=== PATIENT | female | born 1965 | race Caucasian/White ===

== ENCOUNTER 2017-01-01 05:33 | Day surgery (SDC) | payer OTHER ==
[2016-12-30 14:07] LABS: HEMATOCRIT 40.6 % (34.6-47.8); HEMOGLOBIN 13.4 g/dL (11.7-16.4); WHITE BLOOD COUNT 9.1 x10^3/uL (3.4-10)
[2016-12-30 14:18] LABS: BLOOD UREA NITROGEN 13 mg/dL (7-18)
[~2017-01-01] VITALS: Ht 167.6 cm; Wt 63.9 kg
[~2017-01-01 05:33] MED LIST: AZEL50GE5 TP; CHOL2000 PO; PARO10TA3 PO; POTA5TAB2 PO; POTASSIUM CITRATE PO
[2017-01-01] MEDS ORDERED: LACTATED RINGERS 1,000 ML IV SCH (06:07)
[2017-01-01 06:09] VITALS: BP 124/80
[2017-01-01] MEDS ORDERED: SILVER NITRATE STICK TP ONE (06:15)
[2017-01-01] MEDS ORDERED: BUPIVACAINE/PF 0.25% ONE (06:50)
[2017-01-01] MEDS ORDERED: EPINEPHRINE 1 MG/ML, 1ML ONE (06:50)
[2017-01-01] MEDS ORDERED: FENTANYL PF 100 MCG/2ML ONE (07:12)
[2017-01-01] MEDS ORDERED: MIDAZOLAM 1 MG/ML, 2ML ONE (07:13)
[2017-01-01] MEDS ORDERED: SCOPOLAMINE PATCH, 1.5MG PATCH.TD72 TD ONE (07:19)
[2017-01-01] MEDS ORDERED: hydrALAzine 20 MG/ML, 1ML IV PRN (08:30)
[2017-01-01] MEDS ORDERED: ACETAMINOPHEN 325 MG TABLET PO PRN (08:30)
[2017-01-01] MEDS ORDERED: METOPROLOL 1 MG/ML, 5ML IV PRN (08:30)
[2017-01-01] MEDS ORDERED: HYDROmorphone 1 MG/ML, 1ML IV PRN (08:30)
[2017-01-01] MEDS ORDERED: FENTANYL PF 100 MCG/2ML IV PRN (08:30)
[2017-01-01] MEDS ORDERED: ALBUTEROL SULFATE 2.5 MG/3 ML NPPB PRN (08:30)
[2017-01-01] MEDS ORDERED: OXYcodone 5 MG/5 ML ORAL.SOL UDC PO PRN (08:30)
[2017-01-01] MEDS ORDERED: PROMETHAZINE 25 MG/ML, 1ML IV PRN (08:30)
[2017-01-01] MEDS ORDERED: MIDAZOLAM 1 MG/ML, 2ML IV PRN (08:30)
[2017-01-01] MEDS ORDERED: MEPERIDINE/PF 25MG/0.5ML ONE (08:57)
[2017-01-01] MEDS ORDERED: MEPERIDINE/PF 25MG/0.5ML IVPush PRN (09:00)
[2017-01-01] MEDS ORDERED: ONDANSETRON 2MG/ML, 2ML ONE (16:05)
[2017-01-01] MEDS ORDERED: PROPOFOL 10 MG/ML, 20ML ONE (16:05)
[2017-01-01] MEDS ORDERED: DEXAMETHASONE 4 MG/ML, 1ML ONE (16:05)
== END 2017-01-01 11:20 ==
LOC: OUT 05:33
PROVIDERS: ATTEND Obstetrics & Gynecology
DX: N92.1 Excessive and frequent menstruation with irregular cycle (principal); N94.6 Dysmenorrhea, unspecified; N87.9 Dysplasia of cervix uteri, unspecified; Z98.51 Tubal ligation status; Z98.890 Other specified postprocedural states; Z90.49 Acquired absence of other specified parts of digestive tract; Z88.8 Allergy status to other drugs, medicaments and biological substances
CPT/HCPCS: 36415; 57522; 58558; 80048; 85025; 88305; J0171; J1100; J2175; J2250; J2405; J2704; J3010; J3490; J7120

== ENCOUNTER → 2017-02-03 | Outpatient (CLI) | payer OTHER ==
[2017-02-03 14:47] LABS: HEMATOCRIT 36.9 % (34.6-47.8); HEMOGLOBIN 12.1 g/dL (11.7-16.4); WHITE BLOOD COUNT 7.7 x10^3/uL (3.4-10)
== END | disposition home or self-care (01) ==
LOC: STAR 13:47
PROVIDERS: ATTEND Obstetrics & Gynecology
DX: Z01.818 Encounter for other preprocedural examination (principal); N94.6 Dysmenorrhea, unspecified; N92.1 Excessive and frequent menstruation with irregular cycle
CPT/HCPCS: 36415; 85025

== ENCOUNTER → 2017-07-29 | Outpatient (CLI) | payer OTHER | LOC: CFH 07:04 | PROVIDERS: ATTEND Family Medicine | DX: N20.0 Calculus of kidney (principal); Z90.49 Acquired absence of other specified parts of digestive tract | CPT/HCPCS: 76700 ==

== ENCOUNTER → 2017-10-18 | Outpatient (CLI) | payer OTHER | END | disposition home or self-care (01) | LOC: RAD 14:48 | PROVIDERS: ATTEND Urology | DX: E83.59 Other disorders of calcium metabolism (principal); N29 Other disorders of kidney and ureter in diseases classified elsewhere | CPT/HCPCS: 74018 ==

== ENCOUNTER 2017-10-20 07:28 | Day surgery (SDC) | payer OTHER ==
[2017-10-15 08:35] VITALS: BP 106/77
[~2017-10-20] VITALS: Ht 167.6 cm; Wt 70.5 kg
[2017-10-20] MEDS ORDERED: LACTATED RINGERS 1,000 ML IV SCH (08:09)
[2017-10-20 08:12] VITALS: BP 106/77
[2017-10-20] MEDS ORDERED: LIDOCAINE-MPF 1%, 2ML ONE (08:23)
[2017-10-20] MEDS ORDERED: LIDOCAINE-MPF 1%, 2ML INFIL ONE (08:30)
[2017-10-20] MEDS ORDERED: ONDANSETRON ODT 8 MG ONE (09:06)
[2017-10-20] MEDS ORDERED: SCOPOLAMINE PATCH, 1.5MG PATCH.TD72 TD ONE ×2 (09:06→09:30)
[2017-10-20] MEDS ORDERED: MIDAZOLAM 1 MG/ML, 2ML ONE (09:12)
[2017-10-20] MEDS ORDERED: FENTANYL PF 250 MCG/5ML ONE (09:12)
[2017-10-20] MEDS ORDERED: ONDANSETRON ODT 8 MG PO ONE (09:30)
[2017-10-20] MEDS ORDERED: DEXAMETHASONE 4 MG/ML, 1ML ONE (09:46)
[2017-10-20] MEDS ORDERED: CEFAZOLIN 1,000 MG ONE (09:46)
[2017-10-20] MEDS ORDERED: PROPOFOL 10 MG/ML, 20ML ONE (09:46)
[2017-10-20] MEDS ORDERED: HYDROcodone/APAP 7.5-325MG/15ML UDC PO PRN (10:30)
[2017-10-20] MEDS ORDERED: FENTANYL PF 100 MCG/2ML IV PRN (10:30)
[2017-10-20] MEDS ORDERED: ONDANSETRON ODT 8 MG PO PRN (10:30)
[2017-10-20] MEDS ORDERED: MEPERIDINE/PF 25MG/0.5ML IVPush PRN (10:30)
[2017-10-20] MEDS ORDERED: ACETAMINOPHEN 325 MG TABLET PO PRN (10:30)
[2017-10-20] MEDS ORDERED: OXYcodone 5 MG/5 ML ORAL.SOL UDC PO PRN (10:30)
[2017-10-20] MEDS ORDERED: PROMETHAZINE 25 MG/ML, 1ML IV PRN (10:30)
[2017-10-20] MEDS ORDERED: FENTANYL PF 100 MCG/2ML ONE (11:39)
[2017-10-20] MEDS ORDERED: HYDROcodone/APAP 7.5-325MG/15ML UDC ONE (11:39)
[2017-10-20] MEDS ORDERED: CIPROFLOXACIN/PMX 400MG/200ML 200 ML ONE ×2 (12:02)
== END 2017-10-20 13:30 ==
LOC: OUT 07:28
PROVIDERS: ATTEND Urology
DX: N20.0 Calculus of kidney (principal); E83.59 Other disorders of calcium metabolism; Z98.890 Other specified postprocedural states; Z72.89 Other problems related to lifestyle; Z88.8 Allergy status to other drugs, medicaments and biological substances
CPT/HCPCS: 52356; 74018; 76000; C1769; C2617; J0690; J0744; J1100; J2250; J2704; J3010; J3490; J7120; Q0162

== ENCOUNTER → 2018-02-13 | Outpatient (CLI) | payer OTHER ==
[2018-02-13 12:03] LABS: MICROSCOPIC NOT IND
[2018-02-13 12:32] LABS: BASOPHILS # (AUTO) 0.07 x10^3/uL (0-0.1); BASOPHILS % (AUTO) 1 % (0-1); EOSINOPHILS # (AUTO) 0.55 x10^3/uL (0-0.4); EOSINOPHILS % (AUTO) 7 % (1-7); LYMPHOCYTES # (AUTO) 2.67 x10^3/uL (1-3.4); LYMPHOCYTES % (AUTO) 32 % (22-44); MD NO; MEAN CORPUSCULAR HEMOGLOBIN 29.2 pg (27.0-34.8); MEAN CORPUSCULAR HGB CONC 33.7 g/dL (32.4-35.8); MEAN CORPUSCULAR VOLUME 86.6 fL (80-100); MEAN PLATELET VOLUME 7.7 fL (7.4-10.4); MONOCYTES # (AUTO) 0.52 x10^3/uL (0.2-0.8); MONOCYTES % (AUTO) 6 % (2-9); NEUTROPHILS # (AUTO) 4.68 x10^3/uL (1.8-6.8); NEUTROPHILS % (AUTO) 55 % (42-75); PLATELET COUNT 325 x10^3/uL (130-400); RED BLOOD COUNT 4.85 x10^6/uL (3.82-5.3); RED CELL DISTRIBUTION WIDTH 12.6 % (9.6-15.2)
[2018-02-13 12:58] LABS: CHLORIDE 106 mmol/L (98-107)
[2018-02-13 13:18] LABS: ALANINE AMINOTRANSFERASE 33 U/L (12-78); ALBUMIN 4.1 g/dL (3.4-5.0); ALKALINE PHOSPHATASE 49 U/L (45-117); ANION GAP 12 mmol/L (5-15); BILIRUBIN,TOTAL 0.3 mg/dL (0.2-1.0); CALCIUM 9.6 mg/dL (8.5-10.1); CREATININE 0.66 mg/dL (0.55-1.02); TOTAL PROTEIN 8.2 g/dL (6.4-8.2)
== END | disposition home or self-care (01) ==
LOC: STAR 11:14
PROVIDERS: ATTEND Urology
DX: Z01.818 Encounter for other preprocedural examination (principal); N20.9 Urinary calculus, unspecified
CPT/HCPCS: 36415; 80053; 81003; 85025; 87086

== ENCOUNTER 2018-03-02 07:03 | Day surgery (SDC) | payer OTHER ==
[~2018-03-02] VITALS: Ht 167.6 cm; Wt 71.9 kg
[2018-03-02] MEDS ORDERED: LACTATED RINGERS 1,000 ML IV SCH (07:34)
[2018-03-02 07:40] VITALS: BP 129/71
[2018-03-02 08:06] LABS: HCG UR SG 1.016 (1.003-1.030)
[2018-03-02] MEDS ORDERED: SCOPOLAMINE PATCH, 1.5MG PATCH.TD72 TD ONE ×2 (09:21→09:30)
[2018-03-02] MEDS ORDERED: PROPOFOL 10 MG/ML, 20ML ONE (09:21)
[2018-03-02] MEDS ORDERED: ROCURONIUM 10MG/ML,5ML ONE (09:21)
[2018-03-02] MEDS ORDERED: SUCCINYLCHOLINE 20 MG/ML, 10ML ONE (09:21)
[2018-03-02] MEDS ORDERED: FENTANYL PF 100 MCG/2ML ONE (09:22)
[2018-03-02] MEDS ORDERED: MIDAZOLAM 1 MG/ML, 2ML ONE (09:22)
[2018-03-02] MEDS ORDERED: ACETAMINOPHEN 325 MG TABLET PO PRN (09:30)
[2018-03-02] MEDS ORDERED: LORazepam 2 MG/ML, 1ML IVPush PRN (09:30)
[2018-03-02] MEDS ORDERED: METOCLOPRAMIDE 5 MG/ML, 2ML IV PRN (09:30)
[2018-03-02] MEDS ORDERED: MEPERIDINE/PF 25MG/0.5ML IVPush PRN (09:30)
[2018-03-02] MEDS ORDERED: EPHEDRINE 50 MG/ML, 1ML IVPush PRN (09:30)
[2018-03-02] MEDS ORDERED: HALOPERIDOL 5 MG/ML IV PRN (09:30)
[2018-03-02] MEDS ORDERED: ONDANSETRON 2MG/ML, 2ML IV PRN (09:30)
[2018-03-02] MEDS ORDERED: OXYcodone 5 MG/5 ML ORAL.SOL UDC PO PRN (09:30)
[2018-03-02] MEDS ORDERED: DIPHENHYDRAMINE 50 MG/ML, 1ML IVPush PRN (09:30)
[2018-03-02] MEDS ORDERED: LABETALOL 5MG/ML, 20ML IV PRN (09:30)
[2018-03-02] MEDS ORDERED: HYDROcodone/APAP 7.5-325MG/15ML UDC PO PRN (09:30)
[2018-03-02] MEDS ORDERED: KETOROLAC 30 MG/1 ML IV PRN (09:30)
[2018-03-02] MEDS ORDERED: FENTANYL PF 100 MCG/2ML IV PRN (09:30)
[2018-03-02] MEDS ORDERED: MECLIZINE CHEWABLE 25 MG TAB PO PRN (09:30)
[2018-03-02] MEDS ORDERED: HYDROmorphone 1 MG/ML, 1ML IV PRN (09:30)
[2018-03-02] MEDS ORDERED: ALBUTEROL SULFATE 2.5 MG/3 ML NPPB PRN (09:30)
[2018-03-02] MEDS ORDERED: DEXAMETHASONE 4 MG/ML, 1ML ONE (09:37)
[2018-03-02] MEDS ORDERED: CEFAZOLIN 1,000 MG ONE (09:55)
[2018-03-02] MEDS ORDERED: ONDANSETRON 2MG/ML, 2ML ONE (11:21)
[2018-03-02] MEDS ORDERED: MEPERIDINE/PF 50 MG/ML ONE (11:47)
[2018-03-02] MEDS ORDERED: KETOROLAC 30 MG/1 ML ONE (12:23)
== END 2018-03-02 14:20 | disposition home or self-care (01) ==
LOC: OUT 07:03
PROVIDERS: ATTEND Urology
DX: N29 Other disorders of kidney and ureter in diseases classified elsewhere (principal); E83.59 Other disorders of calcium metabolism; Z72.89 Other problems related to lifestyle; Z87.440 Personal history of urinary (tract) infections; Z98.51 Tubal ligation status; Z90.49 Acquired absence of other specified parts of digestive tract; Z98.890 Other specified postprocedural states
CPT/HCPCS: 52356; 74018; 76000; 81025; 82360; 88300; C1758; C1769; C2617; J0330; J0690; J1100; J1885; J2175; J2250; J2405; J2704; J3010; J7120

== ENCOUNTER 2018-04-20 11:19 | Day surgery (SDC) | payer OTHER ==
[~2018-04-20] VITALS: Ht 167.6 cm; Wt 72.5 kg
[~2018-04-20 11:19] MED LIST changes: +CIPRO PO
[2018-04-20] MEDS ORDERED: LACTATED RINGERS 1,000 ML IV SCH ×2 (11:46→19:30)
[2018-04-20 12:13] VITALS: BP 130/80
[2018-04-20] MEDS ORDERED: PROMETHAZINE 25 MG/ML, 1ML IV PRN (16:00)
[2018-04-20] MEDS ORDERED: MEPERIDINE/PF 25MG/0.5ML IVPush PRN (16:00)
[2018-04-20] MEDS ORDERED: ACETAMINOPHEN 325 MG TABLET PO PRN (16:00)
[2018-04-20] MEDS ORDERED: LABETALOL 5MG/ML, 20ML IV PRN (16:00)
[2018-04-20] MEDS ORDERED: FENTANYL PF 100 MCG/2ML IV PRN (16:00)
[2018-04-20] MEDS ORDERED: OXYcodone 5 MG/5 ML ORAL.SOL UDC PO PRN (16:00)
[2018-04-20] MEDS ORDERED: SCOPOLAMINE PATCH, 1.5MG PATCH.TD72 TD PRN (16:00)
[2018-04-20] MEDS ORDERED: HYDROmorphone 2 MG/ML, 1ML IVPush PRN (16:00)
[2018-04-20] MEDS ORDERED: MIDAZOLAM 1 MG/ML, 2ML IV PRN (16:00)
[2018-04-20] MEDS ORDERED: ONDANSETRON 2MG/ML, 2ML IV PRN ×2 (16:00→19:30)
[2018-04-20] MEDS ORDERED: ALBUTEROL/IPRATROPIUM 2.5MG/0.5MG, 3 ML NPPB PRN (16:00)
[2018-04-20] MEDS ORDERED: hydrALAzine 20 MG/ML, 1ML IV PRN (16:00)
[2018-04-20] MEDS ORDERED: SCOPOLAMINE PATCH, 1.5MG PATCH.TD72 TD ONE ×2 (16:03→16:09)
[2018-04-20] MEDS ORDERED: MIDAZOLAM 1 MG/ML, 2ML ONE (16:08)
[2018-04-20] MEDS ORDERED: FENTANYL PF 250 MCG/5ML ONE (16:08)
[2018-04-20] MEDS ORDERED: MIDAZOLAM 1 MG/ML, 5ML ONE (16:08)
[2018-04-20] MEDS ORDERED: PROPOFOL 10 MG/ML, 50ML ONE (16:09)
[2018-04-20] MEDS ORDERED: PROPOFOL 10 MG/ML, 20ML ONE (16:24)
[2018-04-20] MEDS ORDERED: DEXAMETHASONE 4 MG/ML, 1ML ONE (16:24)
[2018-04-20] MEDS ORDERED: ONDANSETRON 2MG/ML, 2ML ONE (16:24)
[2018-04-20] MEDS ORDERED: MEPERIDINE/PF 50 MG/ML ONE (18:45)
[2018-04-20] MEDS ORDERED: OXYcodone/APAP 5/325MG TABLET PO PRN (19:30)
[2018-04-20] MEDS ORDERED: HYDROcodone/APAP 5/325 TABLET PO PRN (19:30)
[2018-04-20] MEDS ORDERED: morphine SULFATE 10 MG/ML, 1ML IV PRN (19:30)
[2018-04-20] MEDS ORDERED: AZELAIC ACID TP SCH (21:00)
[2018-04-20] MEDS ORDERED: POTASSIUM CITRATE 1620 MG HOMEMEDPO SCH (21:00)
== END 2018-04-20 20:05 | disposition home or self-care (01) ==
LOC: OUT 11:19 → 4NOR 19:06 → OUT 20:05
PROVIDERS: ATTEND Urology
DX: N20.0 Calculus of kidney (principal); K21.9 Gastro-esophageal reflux disease without esophagitis; Z72.89 Other problems related to lifestyle; Z88.8 Allergy status to other drugs, medicaments and biological substances; Z90.49 Acquired absence of other specified parts of digestive tract; Z98.890 Other specified postprocedural states
CPT/HCPCS: 52353; C1758; C1769; J1100; J2175; J2250; J2405; J2704; J3010; J7120; G0378

== ENCOUNTER 2018-04-22 21:17 | Inpatient (IN) | payer OTHER ==
[~2018-04-22] VITALS: Ht 167.6 cm; Wt 71.4 kg
[2018-04-22] MEDS ORDERED: ONDANSETRON 2MG/ML, 2ML ONE (21:52)
[2018-04-22] MEDS ORDERED: ACETAMINOPHEN 500 MG TABLET ONE (21:53)
[2018-04-22] MEDS ORDERED: CEFTRIAXONE PMX 1GM/50ML 50 ML ONE (21:53)
[2018-04-22] MEDS ORDERED: ACETAMINOPHEN 500 MG TABLET PO ONE (22:00)
[2018-04-22] MEDS ORDERED: CEFTRIAXONE PMX 1GM/50ML 50 ML IVPB ONE (22:00)
[2018-04-22] MEDS ORDERED: SODIUM CHLORIDE 0.9% 1,000ML IVBOLUS ONE (22:00)
[2018-04-22] MEDS ORDERED: ONDANSETRON 2MG/ML, 2ML IVPush ONE (22:00)
[2018-04-22] MEDS ORDERED: SODIUM CHLORIDE FLUSH 10ML SYR IVF ONE (22:00)
[2018-04-22 22:12] LABS: BASOPHILS # (AUTO) 0.02 x10^3/uL (0-0.1); BASOPHILS % (AUTO) 0 % (0-1); EOSINOPHILS # (AUTO) 0.29 x10^3/uL (0-0.4); EOSINOPHILS % (AUTO) 2 % (1-7); LYMPHOCYTES # (AUTO) 1.69 x10^3/uL (1-3.4); LYMPHOCYTES % (AUTO) 12 % (22-44); MD NO; MEAN CORPUSCULAR HEMOGLOBIN 29.4 pg (27.0-34.8); MEAN CORPUSCULAR HGB CONC 34.3 g/dL (32.4-35.8); MEAN CORPUSCULAR VOLUME 85.8 fL (80-100); MONOCYTES # (AUTO) 1.02 x10^3/uL (0.2-0.8); MONOCYTES % (AUTO) 7 % (2-9); NEUTROPHILS # (AUTO) 11.15 x10^3/uL (1.8-6.8); NEUTROPHILS % (AUTO) 79 % (42-75); PLATELET COUNT 298 x10^3/uL (130-400); RED BLOOD COUNT 4.17 x10^6/uL (3.82-5.3)
[2018-04-22 22:12] LABS: MICROSCOPIC AUTO
[2018-04-22 22:16] LABS: CULTURE INDICATED? NO
[2018-04-22 22:21] LABS: ALANINE AMINOTRANSFERASE 26 U/L (12-78); ALBUMIN 3.7 g/dL (3.4-5.0); ANION GAP 11 mmol/L (5-15); CALCIUM 8.6 mg/dL (8.5-10.1); CHLORIDE 107 mmol/L (98-107)
[2018-04-22 22:23] LABS: ALKALINE PHOSPHATASE 44 U/L (45-117); BILIRUBIN,TOTAL 0.5 mg/dL (0.2-1.0); TOTAL PROTEIN 7.2 g/dL (6.4-8.2)
[2018-04-22] MEDS ORDERED: POTASSIUM CHLORIDE 20 MEQ TAB.ER.PRT ONE (22:50)
[2018-04-22] MEDS ORDERED: POTASSIUM CHLORIDE 20 MEQ TAB.ER.PRT PO ONE (23:00)
[2018-04-22] MEDS: NS + 20MEQ KCL 1,000 ML IV SCH (23:25)
[2018-04-22] MEDS: HEPARIN 5,000 UNITS/ML, 1ML SQ SCH (23:30)
[2018-04-22] MEDS ORDERED: POLYETHYLENE GLYCOL 17 GM PACKET PO PRN (23:30)
[2018-04-22] MEDS ORDERED: BISACODYL 10 MG SUPP PR PRN (23:30)
[2018-04-22] MEDS ORDERED: VANCOMYCIN PER PHARMACY MC PRN (23:30)
[2018-04-22] MEDS: AZELAIC ACID TP SCH (23:30)
[2018-04-22] MEDS ORDERED: PHARMACOKINETIC MONITORING MC PRN (23:45)
[2018-04-22] MEDS ORDERED: PHARMACOKINETIC CONSULTATION MC ONE (23:45)
[2018-04-22 23:55] VITALS: BP 107/67
[2018-04-23] MEDS: VANCOMYCIN 1,400 MG in SODIUM CHLORIDE 0.9% 250 ML IV SCH ×3 (00:14→23:57)
[2018-04-23 01:32] VITALS: BP 109/69
[2018-04-23] MEDS: ACETAMINOPHEN 325 MG TABLET PO PRN ×4 (04:03→21:18)
[2018-04-23 05:57] LABS: BASOPHILS # (AUTO) 0.06 x10^3/uL (0-0.1); BASOPHILS % (AUTO) 1 % (0-1); EOSINOPHILS # (AUTO) 0.22 x10^3/uL (0-0.4); EOSINOPHILS % (AUTO) 2 % (1-7); LYMPHOCYTES # (AUTO) 1.21 x10^3/uL (1-3.4); LYMPHOCYTES % (AUTO) 10 % (22-44); MD NO; MEAN CORPUSCULAR HEMOGLOBIN 29.8 pg (27.0-34.8); MEAN CORPUSCULAR VOLUME 87.6 fL (80-100); MEAN PLATELET VOLUME 8.3 fL (7.4-10.4); MONOCYTES # (AUTO) 0.92 x10^3/uL (0.2-0.8); MONOCYTES % (AUTO) 8 % (2-9); NEUTROPHILS # (AUTO) 9.28 x10^3/uL (1.8-6.8); NEUTROPHILS % (AUTO) 79 % (42-75); PLATELET COUNT 257 x10^3/uL (130-400); RED BLOOD COUNT 3.96 x10^6/uL (3.82-5.3); RED CELL DISTRIBUTION WIDTH 12.9 % (9.6-15.2)
[2018-04-23 06:13] LABS: CHLORIDE 112 mmol/L (98-107)
[2018-04-23 06:19] LABS: ALANINE AMINOTRANSFERASE 38 U/L (12-78); ALBUMIN 3.2 g/dL (3.4-5.0); ALKALINE PHOSPHATASE 38 U/L (45-117); ANION GAP 8 mmol/L (5-15); BILIRUBIN,TOTAL 0.8 mg/dL (0.2-1.0); CALCIUM 7.7 mg/dL (8.5-10.1); CREATININE 0.57 mg/dL (0.55-1.02); TOTAL PROTEIN 6.5 g/dL (6.4-8.2)
[2018-04-23 07:34] VITALS: BP 110/70
[2018-04-23] MEDS: AZELAIC ACID TP SCH ×2 (09:00→21:20)
[2018-04-23] MEDS: SENNA/DOCUSATE TABLET PO SCH (10:55)
[2018-04-23] MEDS: HEPARIN 5,000 UNITS/ML, 1ML SQ SCH ×2 (10:57→21:19)
[2018-04-23 11:52] LABS: RAPID INFLUENZA A Negative (Negative); RAPID INFLUENZA B Negative (Negative)
[2018-04-23] MEDS: NS + 20MEQ KCL 1,000 ML IV SCH (12:04)
[2018-04-23] MEDS ORDERED: POTASSIUM CHLORIDE 20 MEQ TAB.ER.PRT PO ONE (12:30)
[2018-04-23 12:58] VITALS: BP 104/69
[2018-04-23] MEDS: SODIUM CHLORIDE 0.9% 1,000 ML IV SCH ×2 (14:25→23:57)
[2018-04-23 18:48] VITALS: BP 113/74
[2018-04-23] MEDS: CEFTRIAXONE PMX 1GM/50ML 50 ML IV SCH (21:19)
[2018-04-24 01:14] VITALS: BP 107/65
[2018-04-24] MEDS: HEPARIN 5,000 UNITS/ML, 1ML SQ SCH (04:58)
[2018-04-24 05:49] LABS: BASOPHILS # (AUTO) 0.03 x10^3/uL (0-0.1); BASOPHILS % (AUTO) 0 % (0-1); EOSINOPHILS % (AUTO) 2 % (1-7); LYMPHOCYTES # (AUTO) 1.74 x10^3/uL (1-3.4); LYMPHOCYTES % (AUTO) 16 % (22-44); MD NO; MEAN CORPUSCULAR HEMOGLOBIN 29.2 pg (27.0-34.8); MEAN CORPUSCULAR HGB CONC 33.3 g/dL (32.4-35.8); MEAN CORPUSCULAR VOLUME 87.7 fL (80-100); MEAN PLATELET VOLUME 8.5 fL (7.4-10.4); MONOCYTES # (AUTO) 0.96 x10^3/uL (0.2-0.8); MONOCYTES % (AUTO) 9 % (2-9); NEUTROPHILS # (AUTO) 7.78 x10^3/uL (1.8-6.8); NEUTROPHILS % (AUTO) 73 % (42-75); PLATELET COUNT 256 x10^3/uL (130-400); RED BLOOD COUNT 4.15 x10^6/uL (3.82-5.3); RED CELL DISTRIBUTION WIDTH 13.3 % (9.6-15.2)
[2018-04-24 05:55] LABS: ANION GAP 9 mmol/L (5-15); CALCIUM 8.3 mg/dL (8.5-10.1); CHLORIDE 111 mmol/L (98-107)
[2018-04-24 05:57] LABS: CREATININE 0.57 mg/dL (0.55-1.02)
[2018-04-24 07:12] VITALS: BP 110/74
[2018-04-24] MEDS: SENNA/DOCUSATE TABLET PO SCH (08:04)
[2018-04-24] MEDS: SODIUM CHLORIDE 0.9% 1,000 ML IV SCH (08:04)
[2018-04-24] MEDS: AZELAIC ACID TP SCH ×2 (08:05→21:36)
[2018-04-24] MEDS ORDERED: POTASSIUM CHLORIDE 20 MEQ TAB.ER.PRT PO ONE (09:30)
[2018-04-24] MEDS: ENOXAPARIN 40 MG/0.4 ML SQ SCH (11:28)
[2018-04-24] MEDS: VANCOMYCIN 1,400 MG in SODIUM CHLORIDE 0.9% 250 ML IV SCH (11:28)
[2018-04-24 13:05] VITALS: BP 114/77
[2018-04-24 19:11] VITALS: BP 120/82
[2018-04-24] MEDS: CEFTRIAXONE PMX 1GM/50ML 50 ML IV SCH (21:36)
[2018-04-25] MEDS: VANCOMYCIN 1,400 MG in SODIUM CHLORIDE 0.9% 250 ML IV SCH (00:12)
[2018-04-25 01:48] VITALS: BP 106/62
[2018-04-25 05:22] LABS: BASOPHILS # (AUTO) 0.05 x10^3/uL (0-0.1); BASOPHILS % (AUTO) 1 % (0-1); EOSINOPHILS # (AUTO) 0.44 x10^3/uL (0-0.4); EOSINOPHILS % (AUTO) 4 % (1-7); LYMPHOCYTES # (AUTO) 2.51 x10^3/uL (1-3.4); LYMPHOCYTES % (AUTO) 25 % (22-44); MD NO; MEAN CORPUSCULAR HEMOGLOBIN 29.6 pg (27.0-34.8); MEAN CORPUSCULAR HGB CONC 33.6 g/dL (32.4-35.8); MEAN CORPUSCULAR VOLUME 88.2 fL (80-100); MONOCYTES # (AUTO) 0.87 x10^3/uL (0.2-0.8); MONOCYTES % (AUTO) 9 % (2-9); NEUTROPHILS # (AUTO) 6.33 x10^3/uL (1.8-6.8); NEUTROPHILS % (AUTO) 62 % (42-75); PLATELET COUNT 274 x10^3/uL (130-400); RED BLOOD COUNT 4.08 x10^6/uL (3.82-5.3); RED CELL DISTRIBUTION WIDTH 12.9 % (9.6-15.2)
[2018-04-25 05:30] LABS: ANION GAP 8 mmol/L (5-15); CALCIUM 8.8 mg/dL (8.5-10.1); CHLORIDE 112 mmol/L (98-107); CREATININE 0.53 mg/dL (0.55-1.02)
[2018-04-25 07:31] VITALS: BP 101/65
[2018-04-25] MEDS: AZELAIC ACID TP SCH ×2 (09:00→20:29)
[2018-04-25] MEDS: SENNA/DOCUSATE TABLET PO SCH (10:09)
[2018-04-25] MEDS ORDERED: VANCOMYCIN PER PHARMACY MC PRN (10:30)
[2018-04-25] MEDS: ENOXAPARIN 40 MG/0.4 ML SQ SCH (11:30)
[2018-04-25 13:30] VITALS: BP 103/69
[2018-04-25 19:51] VITALS: BP 119/81
[2018-04-26 04:25] VITALS: BP 115/76
[2018-04-26 05:31] LABS: MEAN CORPUSCULAR HEMOGLOBIN 28.9 pg (27.0-34.8); MEAN CORPUSCULAR VOLUME 87.6 fL (80-100); PLATELET COUNT 336 x10^3/uL (130-400); RED BLOOD COUNT 4.45 x10^6/uL (3.82-5.3)
[2018-04-26 05:38] LABS: ALBUMIN 3.2 g/dL (3.4-5.0); ANION GAP 10 mmol/L (5-15); CALCIUM 9.2 mg/dL (8.5-10.1); CHLORIDE 108 mmol/L (98-107)
[2018-04-26 05:43] LABS: ALANINE AMINOTRANSFERASE 67 U/L (12-78); ALKALINE PHOSPHATASE 55 U/L (45-117); BILIRUBIN,TOTAL 0.3 mg/dL (0.2-1.0); CREATININE 0.54 mg/dL (0.55-1.02); TOTAL PROTEIN 7.6 g/dL (6.4-8.2)
[2018-04-26] MEDS: ACETAMINOPHEN 325 MG TABLET PO PRN (05:58)
[2018-04-26 06:22] LABS: BASOPHILS # (AUTO) 0.05 x10^3/uL (0-0.1); BASOPHILS % (AUTO) 1 % (0-1); EOSINOPHILS # (AUTO) 0.52 x10^3/uL (0-0.4); EOSINOPHILS % (AUTO) 5 % (1-7); LYMPHOCYTES # (AUTO) 2.97 x10^3/uL (1-3.4); LYMPHOCYTES % (AUTO) 26 % (22-44); MD SCAN; MONOCYTES # (AUTO) 0.76 x10^3/uL (0.2-0.8); MONOCYTES % (AUTO) 7 % (2-9); NEUTROPHILS # (AUTO) 7.03 x10^3/uL (1.8-6.8); NEUTROPHILS % (AUTO) 62 % (42-75)
[2018-04-26 07:16] VITALS: BP 106/70
[2018-04-26] MEDS ORDERED: CEFAZOLIN 2,000 MG in SODIUM CHLORIDE 0.9% 50 ML IV SCH (07:30)
[2018-04-26] MEDS: SENNA/DOCUSATE TABLET PO SCH (08:49)
[2018-04-26] MEDS: CEFAZOLIN PMX 2GM/50ML 50 ML IVPB SCH ×2 (08:49→16:58)
[2018-04-26] MEDS: AZELAIC ACID TP SCH ×2 (08:50→21:00)
[2018-04-26] MEDS: ENOXAPARIN 40 MG/0.4 ML SQ SCH (11:26)
[2018-04-26] MEDS: ONDANSETRON ODT 4 MG PO PRN ×3 (12:19→21:01)
[2018-04-26 12:24] VITALS: BP 127/84
[2018-04-26 19:10] VITALS: BP 118/82
[2018-04-26] MEDS: LACTOBACILLUS CHEW TABLET PO SCH (21:01)
[2018-04-27] MEDS: CEFAZOLIN PMX 2GM/50ML 50 ML IVPB SCH (00:23)
[2018-04-27] MEDS: ONDANSETRON ODT 4 MG PO PRN ×2 (01:01→05:29)
[2018-04-27 01:34] VITALS: BP 110/74
[2018-04-27 06:54] VITALS: BP 113/76
[2018-04-27 07:13] LABS: BASOPHILS # (AUTO) 0.04 x10^3/uL (0-0.1); BASOPHILS % (AUTO) 0 % (0-1); EOSINOPHILS # (AUTO) 0.35 x10^3/uL (0-0.4); EOSINOPHILS % (AUTO) 4 % (1-7); LYMPHOCYTES % (AUTO) 20 % (22-44); MD NO; MEAN CORPUSCULAR HEMOGLOBIN 29.1 pg (27.0-34.8); MEAN CORPUSCULAR HGB CONC 33.7 g/dL (32.4-35.8); MEAN CORPUSCULAR VOLUME 86.2 fL (80-100); MEAN PLATELET VOLUME 7.2 fL (7.4-10.4); MONOCYTES # (AUTO) 0.65 x10^3/uL (0.2-0.8); MONOCYTES % (AUTO) 6 % (2-9); NEUTROPHILS # (AUTO) 7.06 x10^3/uL (1.8-6.8); NEUTROPHILS % (AUTO) 70 % (42-75); PLATELET COUNT 375 x10^3/uL (130-400); RED BLOOD COUNT 4.51 x10^6/uL (3.82-5.3); RED CELL DISTRIBUTION WIDTH 12.8 % (9.6-15.2)
[2018-04-27 07:24] LABS: ALBUMIN 3.3 g/dL (3.4-5.0); ANION GAP 9 mmol/L (5-15); CHLORIDE 106 mmol/L (98-107)
[2018-04-27 07:27] LABS: ALANINE AMINOTRANSFERASE 65 U/L (12-78); ALKALINE PHOSPHATASE 63 U/L (45-117); BILIRUBIN,TOTAL 0.4 mg/dL (0.2-1.0); CREATININE 0.59 mg/dL (0.55-1.02); TOTAL PROTEIN 7.8 g/dL (6.4-8.2)
[2018-04-27] MEDS: ERTAPENEM 1 GM in SODIUM CHLORIDE 0.9% 50 ML IV SCH (08:42)
[2018-04-27] MEDS: SODIUM CHLORIDE 0.45% 1,000 ML IV SCH ×2 (08:43→18:01)
[2018-04-27] MEDS: ONDANSETRON 2MG/ML, 2ML IVPush PRN ×2 (08:43→18:01)
[2018-04-27] MEDS: AZELAIC ACID TP SCH ×2 (08:56→20:47)
[2018-04-27] MEDS ORDERED: METOCLOPRAMIDE 5 MG/ML, 2ML IVPush ONE (09:00)
[2018-04-27] MEDS ORDERED: DIPHENHYDRAMINE 50 MG/ML, 1ML IVPush ONE (09:00)
[2018-04-27] MEDS: LACTOBACILLUS CHEW TABLET PO SCH ×2 (09:00→20:47)
[2018-04-27] MEDS ORDERED: KETOROLAC 30 MG/1 ML IVPush SCH (09:00)
[2018-04-27] MEDS: SENNA/DOCUSATE TABLET PO SCH (09:00)
[2018-04-27] MEDS: ENOXAPARIN 40 MG/0.4 ML SQ SCH (12:00)
[2018-04-27 12:44] VITALS: BP 110/73
[2018-04-27 16:14] LABS: HCT (SEDRATE) 37.9 % (34.6-47.8)
[2018-04-27 19:13] VITALS: BP 109/71
[2018-04-28] MEDS: SODIUM CHLORIDE 0.45% 1,000 ML IV SCH ×2 (00:48→08:06)
[2018-04-28 01:16] VITALS: BP 105/67
[2018-04-28 05:13] LABS: BASOPHILS # (AUTO) 0.05 x10^3/uL (0-0.1); BASOPHILS % (AUTO) 1 % (0-1); EOSINOPHILS # (AUTO) 0.34 x10^3/uL (0-0.4); EOSINOPHILS % (AUTO) 3 % (1-7); LYMPHOCYTES # (AUTO) 2.83 x10^3/uL (1-3.4); LYMPHOCYTES % (AUTO) 28 % (22-44); MD NO; MEAN CORPUSCULAR HGB CONC 33.4 g/dL (32.4-35.8); MEAN CORPUSCULAR VOLUME 86.7 fL (80-100); MEAN PLATELET VOLUME 7.5 fL (7.4-10.4); MONOCYTES # (AUTO) 0.68 x10^3/uL (0.2-0.8); MONOCYTES % (AUTO) 7 % (2-9); NEUTROPHILS # (AUTO) 6.34 x10^3/uL (1.8-6.8); NEUTROPHILS % (AUTO) 62 % (42-75); PLATELET COUNT 339 x10^3/uL (130-400); RED CELL DISTRIBUTION WIDTH 12.5 % (9.6-15.2)
[2018-04-28 05:20] LABS: ALBUMIN 3.2 g/dL (3.4-5.0); ANION GAP 8 mmol/L (5-15); CHLORIDE 108 mmol/L (98-107)
[2018-04-28 05:23] LABS: ALANINE AMINOTRANSFERASE 57 U/L (12-78); ALKALINE PHOSPHATASE 52 U/L (45-117); BILIRUBIN,TOTAL 0.5 mg/dL (0.2-1.0); CREATININE 0.59 mg/dL (0.55-1.02); TOTAL PROTEIN 6.7 g/dL (6.4-8.2)
[2018-04-28 06:40] VITALS: BP 99/60
[2018-04-28] MEDS: SENNA/DOCUSATE TABLET PO SCH (08:06)
[2018-04-28] MEDS: ERTAPENEM 1 GM in SODIUM CHLORIDE 0.9% 50 ML IV SCH (08:06)
[2018-04-28] MEDS: LACTOBACILLUS CHEW TABLET PO SCH (08:06)
[2018-04-28] MEDS: AZELAIC ACID TP SCH (09:00)
[2018-04-28] MEDS ORDERED: NEUTRA PHOS K 250 MG TABLET PO SCH (09:00)
[2018-04-28] MEDS ORDERED: PHOS250T3 PO (10:20)
[2018-04-28] MEDS ORDERED: ACID1TAB7 PO (10:20)
== END 2018-04-28 11:45 | disposition home or self-care (01) | DRG 872 ==
LOC: ED 22:52 → EDIP 23:02 → 3NE 23:44 → DCLOUNGE 04-28 11:32
PROVIDERS: ADMIT Internal Medicine; ATTEND Internal Medicine
PROC: 02HV33Z Insertion of Infusion Device into Superior Vena Cava, Percutaneous Approach (ICD-10-PCS; principal; 2018-04-27)
PROC: B5181ZA Fluoroscopy of Superior Vena Cava using Low Osmolar Contrast, Guidance (ICD-10-PCS; 2018-04-27)
PROC: B548ZZA Ultrasonography of Superior Vena Cava, Guidance (ICD-10-PCS; 2018-04-27)
DX: A41.1 Sepsis due to other specified staphylococcus (principal); N13.6 Pyonephrosis; L71.9 Rosacea, unspecified; E78.5 Hyperlipidemia, unspecified; J45.909 Unspecified asthma, uncomplicated; E87.6 Hypokalemia; R31.29 Other microscopic hematuria; Z87.01 Personal history of pneumonia (recurrent); Z87.442 Personal history of urinary calculi; Z72.89 Other problems related to lifestyle; Z90.49 Acquired absence of other specified parts of digestive tract; Z80.0 Family history of malignant neoplasm of digestive organs; Z80.7 Family history of other malignant neoplasms of lymphoid, hematopoietic and related tissues; Z91.030 Bee allergy status; Z91.018 Allergy to other foods; Z98.51 Tubal ligation status; Z79.2 Long term (current) use of antibiotics
CPT/HCPCS: 36415; 36569; 71045; 74018; 74022; 76770; 76937; 77001; 80048; 80053; 80202; 81001; 83605; 83735; 84100; 84145; 85025; 85651; 86140; 87040; 87077; 87086; 87186; 87400; 93306; 96365; 96375; 99285; G0378; J0690; J0696; J1335; J1644; J1650; J1885; J2405; J3370; J3480; Q0162; C1751; J1200; J2765; J7030; J7050

== ENCOUNTER 2018-08-17 13:27 | Outpatient (CLI) | payer OTHER ==
[~2018-08-17 13:27] MED LIST changes: +ACID1TAB7 PO; +PHOS250T3 PO
== END 2018-08-17 23:59 | disposition home or self-care (01) ==
LOC: CFH 13:27
PROVIDERS: ATTEND Family Medicine
DX: Z12.31 Encounter for screening mammogram for malignant neoplasm of breast (principal); Z13.820 Encounter for screening for osteoporosis; M85.88 Other specified disorders of bone density and structure, other site; R82.994 Hypercalciuria; Z82.62 Family history of osteoporosis
CPT/HCPCS: 76377; 76641; 77063; 77080; 77067

== ENCOUNTER 2019-04-12 19:00 | Emergency (ER) | payer OTHER ==
[~2019-04-12] VITALS: Ht 167.6 cm; Wt 75.0 kg
[2019-04-12] MEDS ORDERED: ASPIRIN 81 MG TABLET CHEW PO ONE (19:30)
[2019-04-12] MEDS ORDERED: SODIUM CHLORIDE FLUSH 10ML SYR IVF ONE (19:30)
[2019-04-12 19:57] LABS: BASOPHILS # (AUTO) 0.05 x10^3/uL (0-0.1); BASOPHILS % (AUTO) 1 % (0-1); EOSINOPHILS % (AUTO) 5 % (1-7); LYMPHOCYTES # (AUTO) 3.76 x10^3/uL (1-3.4); LYMPHOCYTES % (AUTO) 34 % (22-44); MD NO; MEAN CORPUSCULAR HEMOGLOBIN 29.3 pg (27.0-34.8); MEAN CORPUSCULAR HGB CONC 32.7 g/dL (32.4-35.8); MEAN CORPUSCULAR VOLUME 89.5 fL (80-100); MEAN PLATELET VOLUME 7.8 fL (7.4-10.4); MONOCYTES % (AUTO) 6 % (2-9); NEUTROPHILS # (AUTO) 6.09 x10^3/uL (1.8-6.8); NEUTROPHILS % (AUTO) 54 % (42-75); PLATELET COUNT 335 x10^3/uL (130-400); RED BLOOD COUNT 4.72 x10^6/uL (3.82-5.3); RED CELL DISTRIBUTION WIDTH 12.9 % (9.6-15.2)
[2019-04-12 20:09] LABS: ALBUMIN 4.2 g/dL (3.4-5.0); ANION GAP 6 mmol/L (5-15); CALCIUM 9.7 mg/dL (8.5-10.1); CHLORIDE 106 mmol/L (98-107)
[2019-04-12 20:17] LABS: ALANINE AMINOTRANSFERASE 30 U/L (12-78); ALKALINE PHOSPHATASE 47 U/L (45-117); BILIRUBIN,TOTAL 0.4 mg/dL (0.2-1.0); CREATININE 0.69 mg/dL (0.55-1.02); TOTAL PROTEIN 8.1 g/dL (6.4-8.2); TROPONIN I < 0.015 ng/mL (0.000-0.045)
--- NOTE | 2019-04-12 21:10 | NUR ---
pt to room from lobby, emt to place monitors on pt
[2019-04-12] MEDS ORDERED: ASPIRIN 81 MG TABLET CHEW ONE (21:23)
--- NOTE | 2019-04-12 21:37 | NUR ---
CP X3 DAYS SINCE FRIDAY, INCREASED WITH STRESSFUL SITUATION TODAY. SOB ASSOC.
[2019-04-12 21:38] VITALS: BP 132/75
[2019-04-12] MEDS ORDERED: MAALOX/HYOSCYAMINE/LIDOCAINE 45 ML BTL PO ONE (22:00)
[2019-04-12] MEDS ORDERED: MAALOX/HYOSCYAMINE/LIDOCAINE 45 ML BTL ONE (22:02)
[2019-04-12 22:28] LABS: TROPONIN I < 0.015 ng/mL (0.000-0.045)
--- NOTE | 2019-04-12 23:15 | NUR ---
Patient/Caregiver given discharge instructions and they have confirmed that they understand the instructions. Patient ambulatory with steady gait.
== END 2019-04-12 23:17 | disposition home or self-care (01) ==
LOC: ED 22:07
DX: R07.89 Other chest pain (principal); E78.5 Hyperlipidemia, unspecified; E78.00 Pure hypercholesterolemia, unspecified; Z90.49 Acquired absence of other specified parts of digestive tract
CPT/HCPCS: 36415; 71045; 80053; 83880; 84484; 85025; 93005; 99284

== ENCOUNTER 2019-04-25 10:01 | Inpatient (IN) | payer OTHER ==
[~2019-04-25] VITALS: Ht 167.6 cm; Wt 73.9 kg
--- NOTE | 2019-04-25 10:14 | NUR ---
SENT BY Fiona DENNIS MD TO FOLLOW UP WITH LEFT ARM NERVE PAIN, INCLUDING NECK AND INERMITTENT PRESSURE IN STERNUM. THE PATIENT WAS EVALUATED HER 2 WEEKS AGO. PATIENT STATES SHE THE DISCOMFORT IS INCREASING.
[2019-04-25] MEDS ORDERED: HYDR25TA6 PO (10:23)
[2019-04-25] MEDS ORDERED: ONDANSETRON 2MG/ML, 2ML IVPush ONE (10:30)
[2019-04-25] MEDS ORDERED: SODIUM CHLORIDE FLUSH 10ML SYR IVF ONE (10:30)
[2019-04-25] MEDS ORDERED: ONDANSETRON 2MG/ML, 2ML ONE (10:35)
[2019-04-25] MEDS ORDERED: MORPHINE SULFATE 4 MG/ML, 1ML ONE (10:36)
[2019-04-25] MEDS: MORPHINE SULFATE 4 MG/ML, 1ML IVPush PRN ×2 (10:38→23:56)
[2019-04-25 11:00] LABS: BASOPHILS # (AUTO) 0.09 x10^3/uL (0-0.1); BASOPHILS % (AUTO) 1 % (0-1); EOSINOPHILS # (AUTO) 0.11 x10^3/uL (0-0.4); EOSINOPHILS % (AUTO) 1 % (1-7); LYMPHOCYTES % (AUTO) 15 % (22-44); MD NO; MEAN CORPUSCULAR HEMOGLOBIN 29.3 pg (27.0-34.8); MEAN CORPUSCULAR HGB CONC 32.9 g/dL (32.4-35.8); MEAN PLATELET VOLUME 7.8 fL (7.4-10.4); MONOCYTES # (AUTO) 0.52 x10^3/uL (0.2-0.8); MONOCYTES % (AUTO) 3 % (2-9); NEUTROPHILS # (AUTO) 12.36 x10^3/uL (1.8-6.8); NEUTROPHILS % (AUTO) 80 % (42-75); PLATELET COUNT 398 x10^3/uL (130-400); RED BLOOD COUNT 5.11 x10^6/uL (3.82-5.3); RED CELL DISTRIBUTION WIDTH 12.7 % (9.6-15.2)
[2019-04-25 11:10] LABS: ANION GAP 12 mmol/L (5-15); CALCIUM 9.4 mg/dL (8.5-10.1); CHLORIDE 106 mmol/L (98-107); CREATININE 0.87 mg/dL (0.55-1.02)
[2019-04-25 11:13] LABS: TROPONIN I < 0.015 ng/mL (0.000-0.045)
--- NOTE | 2019-04-25 11:30 | NUR ---
PT BACK IN ROOM, RESTING, CALL LIGHT IN REACH.
--- NOTE | 2019-04-25 12:36 | NUR ---
Patient is resting comfortably in bed. Vital Signs within normal limits.
--- NOTE | 2019-04-25 13:21 | NUR ---
DR JO SPOKE WITH DR DE LOS SANTOS
[2019-04-25] MEDS ORDERED: DIAZEPAM 5 MG/ML, 10ML VIAL IV ONE (13:30)
--- NOTE | 2019-04-25 13:47 | NUR ---
DR JO SPOKE WITH DR FLORES (SYLVIE)
[2019-04-25] MEDS ORDERED: DIAZEPAM 5 MG/ML, 2ML ONE (13:59)
--- NOTE | 2019-04-25 14:07 | NUR ---
PT RESTING, MEDICATED ORDERED. FRIEND AT BEDSIDE
--- NOTE | 2019-04-25 14:31 | NUR ---
ERMD LAW AT BEDSIDE TO DISCUSS POC
--- NOTE | 2019-04-25 15:11 | NUR ---
PT RESTING IN BED
[2019-04-25] MEDS ORDERED: POLYETHYLENE GLYCOL 17 GM PACKET PO PRN (15:30)
[2019-04-25] MEDS ORDERED: BUTALB/APAP/CAFFEINE 50MG/325MG/40MG PO PRN (15:30)
[2019-04-25] MEDS ORDERED: TRAZODONE 50MG TABLET PO PRN (15:30)
[2019-04-25] MEDS ORDERED: KETOROLAC 30 MG/1 ML IV PRN (15:30)
[2019-04-25] MEDS ORDERED: ACETAMINOPHEN 325 MG TABLET PO PRN (15:30)
[2019-04-25] MEDS ORDERED: GUAIFENESIN/DM 200-20MG, 10ML UDC PO PRN (15:30)
[2019-04-25] MEDS ORDERED: ONDANSETRON ODT 4 MG PO PRN (15:30)
[2019-04-25] MEDS ORDERED: hydrALAzine 20 MG/ML, 1ML IVPush PRN (15:30)
[2019-04-25] MEDS ORDERED: ONDANSETRON 2MG/ML, 2ML IVPush PRN (15:30)
--- NOTE | 2019-04-25 15:45 | NUR ---
REPORT CALLED TO [facility]. PATIENT AWARE OF TRANSFER.
[2019-04-25] MEDS: methylPREDNISolone SOD SUCC 125 MG/2 ML IVPush SCH (17:30)
[2019-04-25] MEDS: D5%-0.45% NACL 1,000 ML IV SCH (17:30)
[2019-04-25 18:13] VITALS: BP 137/85
[2019-04-25] MEDS: HYDROmorphone 2 MG/ML, 1ML IVPush PRN ×2 (18:18→23:14)
[2019-04-25 20:20] VITALS: BP 153/87
[2019-04-25] MEDS: GABAPENTIN 100 MG CAPSULE PO SCH (20:37)
[2019-04-25] MEDS: METHOCARBAMOL 750 MG TABLET PO SCH (20:37)
[2019-04-26] MEDS: methylPREDNISolone SOD SUCC 125 MG/2 ML IVPush SCH ×2 (01:18→09:23)
[2019-04-26 02:01] VITALS: BP 124/82
[2019-04-26 05:06] LABS: BASOPHILS # (AUTO) 0.02 x10^3/uL (0-0.1); BASOPHILS % (AUTO) 0 % (0-1); EOSINOPHILS # (AUTO) 0.08 x10^3/uL (0-0.4); EOSINOPHILS % (AUTO) 1 % (1-7); LYMPHOCYTES # (AUTO) 1.39 x10^3/uL (1-3.4); LYMPHOCYTES % (AUTO) 9 % (22-44); MD NO; MEAN CORPUSCULAR HEMOGLOBIN 29.2 pg (27.0-34.8); MEAN CORPUSCULAR HGB CONC 32.2 g/dL (32.4-35.8); MEAN CORPUSCULAR VOLUME 90.8 fL (80-100); MEAN PLATELET VOLUME 7.9 fL (7.4-10.4); MONOCYTES # (AUTO) 0.13 x10^3/uL (0.2-0.8); MONOCYTES % (AUTO) 1 % (2-9); NEUTROPHILS # (AUTO) 13.22 x10^3/uL (1.8-6.8); NEUTROPHILS % (AUTO) 89 % (42-75); PLATELET COUNT 362 x10^3/uL (130-400); RED BLOOD COUNT 4.87 x10^6/uL (3.82-5.3); RED CELL DISTRIBUTION WIDTH 12.9 % (9.6-15.2)
[2019-04-26 05:11] LABS: ANION GAP 9 mmol/L (5-15); CALCIUM 8.9 mg/dL (8.5-10.1); CHLORIDE 104 mmol/L (98-107); CREATININE 0.68 mg/dL (0.55-1.02)
[2019-04-26] MEDS: D5%-0.45% NACL 1,000 ML IV SCH (05:59)
[2019-04-26 08:22] VITALS: BP 131/83
[2019-04-26] MEDS: GABAPENTIN 100 MG CAPSULE PO SCH (09:23)
[2019-04-26] MEDS: METHOCARBAMOL 750 MG TABLET PO SCH (09:23)
[2019-04-26] MEDS ORDERED: GABA-826 PO (11:57)
[2019-04-26] MEDS ORDERED: IBUP-1840 PO (11:57)
[2019-04-26] MEDS ORDERED: HYDR-3652 PO (11:57)
[2019-04-26] MEDS ORDERED: METH750T2 PO (11:57)
[2019-04-26] MEDS ORDERED: METH4TAB2 PO (12:29)
[2019-04-26 15:30] VITALS: BP 128/68
== END 2019-04-26 15:42 | disposition home or self-care (01) | DRG 552 ==
LOC: ED 11:03 → EDIP 14:38 → 4NE 16:20 → DCLOUNGE 04-26 15:28
PROVIDERS: ADMIT Family Medicine; ATTEND Hospitalist
DX: M50.123 Cervical disc disorder at C6-C7 level with radiculopathy (principal); M50.222 Other cervical disc displacement at C5-C6 level; Z79.899 Other long term (current) drug therapy; Z87.442 Personal history of urinary calculi; Z91.030 Bee allergy status; Z91.018 Allergy to other foods; R07.9 Chest pain, unspecified
CPT/HCPCS: 36415; 71045; 72141; 80048; 82040; 83735; 83880; 84484; 85025; 85379; 99285; G0378; J1170; J2405; J3360; J2270; J2930